=== PATIENT | female | born 1990 | race Caucasian/White ===

== ENCOUNTER 2020-12-22 14:46 | Outpatient (CLI) | payer MEDICAID ==
[~2020-12-22] VITALS: Ht 160 cm; Wt 144.5 kg
[2020-12-22 15:24] LABS: MICROSCOPIC INDICATED
[2020-12-22 15:31] LABS: AMPHETAMINE SCREEN, URINE Negative (Negative); BARBITURATE SCREEN, URINE Negative (Negative); BENZODIAZEPINE SCREEN, URINE Negative (Negative); CANNABINOID SCREEN, URINE Negative (Negative); COCAINE SCREEN, URINE Negative (Negative); METHADONE SCREEN, URINE Negative (Negative); OPIATE SCREEN, URINE Negative (Negative)
== END 2020-12-22 17:00 | disposition home or self-care (01) ==
LOC: LDOP 14:46
PROVIDERS: ATTEND Obstetrics & Gynecology
DX: Z34.90 Encounter for supervision of normal pregnancy, unspecified, unspecified trimester (principal)
CPT/HCPCS: 59025; 80307; 81001; 82570; 84156; 87086

== ENCOUNTER 2020-12-26 19:45 | Outpatient (CLI) | payer MEDICAID ==
[~2020-12-26] VITALS: Ht 160 cm; Wt 140.0 kg
[2020-12-26 21:08] LABS: MICROSCOPIC INDICATED
[2020-12-26 21:09] LABS: AMPHETAMINE SCREEN, URINE Negative (Negative); BARBITURATE SCREEN, URINE Negative (Negative); BENZODIAZEPINE SCREEN, URINE Negative (Negative); CANNABINOID SCREEN, URINE Negative (Negative); COCAINE SCREEN, URINE Negative (Negative); METHADONE SCREEN, URINE Negative (Negative); OPIATE SCREEN, URINE Negative (Negative)
== END 2020-12-26 21:40 | disposition home or self-care (01) ==
LOC: LDOP 19:45
PROVIDERS: ATTEND Obstetrics & Gynecology Female Pelvic Medicine and Reconstructive Surgery
DX: O26.893 Other specified pregnancy related conditions, third trimester (principal); R10.9 Unspecified abdominal pain; Z3A.35 35 weeks gestation of pregnancy
CPT/HCPCS: 59025; 80307; 81001; 87086

== ENCOUNTER 2021-01-14 19:25 | Outpatient (CLI) | payer MEDICAID ==
[2021-01-14 19:40] VITALS: BP 129/64
[2021-01-14 20:14] LABS: MICROSCOPIC INDICATED
[2021-01-14 20:17] LABS: AMPHETAMINE SCREEN, URINE Negative (Negative); BARBITURATE SCREEN, URINE Negative (Negative); BENZODIAZEPINE SCREEN, URINE Negative (Negative); CANNABINOID SCREEN, URINE Negative (Negative); COCAINE SCREEN, URINE Negative (Negative); METHADONE SCREEN, URINE Negative (Negative); OPIATE SCREEN, URINE Negative (Negative)
[2021-01-24] MEDS ORDERED: OXYC1TAB14 PO (12:25)
== END 2021-01-14 21:04 | disposition home or self-care (01) ==
LOC: LDOP 19:25
PROVIDERS: ATTEND Obstetrics & Gynecology
DX: O26.893 Other specified pregnancy related conditions, third trimester (principal); Z3A.38 38 weeks gestation of pregnancy
CPT/HCPCS: 59025; 80307; 81001; 87086

== ENCOUNTER 2021-01-21 05:13 | Inpatient (IN) | payer MEDICAID ==
[~2021-01-21] VITALS: Ht 160 cm; Wt 145.0 kg
[2021-01-21] MEDS ORDERED: ONDANSETRON 2MG/ML, 2ML IVPush ONE (05:30)
[2021-01-21] MEDS ORDERED: SODIUM CITRATE/CITRIC ACID 30 ML UDC PO ONE ×2 (05:30→15:00)
[2021-01-21] MEDS ORDERED: LACTATED RINGERS 1,000 ML IVBOLUS ONE (05:30)
[2021-01-21] MEDS ORDERED: CALCIUM CARBONATE 500 MG TAB.CHEW PO PRN (05:30)
[2021-01-21] MEDS ORDERED: METOCLOPRAMIDE 5 MG/ML, 2ML IV ONE (05:30)
[2021-01-21] MEDS ORDERED: CEFAZOLIN PMX 1GM/50ML 50 ML IVPB ONE (05:30)
[2021-01-21] MEDS ORDERED: SODIUM CITRATE/CITRIC ACID 15 ML UDC ONE ×2 (05:57→09:12)
[2021-01-21] MEDS ORDERED: OXYTOCIN 30U/ 0.9% NaCL 500ML 0 ML ONE (05:57)
[2021-01-21] MEDS ORDERED: METOCLOPRAMIDE 5 MG/ML, 2ML ONE ×2 (05:57→10:25)
[2021-01-21] MEDS ORDERED: PLEASE ENTER HEIGHT AND WEIGHT MC SCH (06:00)
[2021-01-21 06:02] LABS: BASOPHILS % (AUTO) 0 % (0-1); EOSINOPHILS % (AUTO) 2 % (1-7); LYMPHOCYTES % (AUTO) 20 % (22-44); MEAN CORPUSCULAR HEMOGLOBIN 26.3 pg (27.0-34.8); MEAN CORPUSCULAR HGB CONC 33.2 g/dL (32.4-35.8); MEAN PLATELET VOLUME 9.4 fL (7.4-10.4); MONOCYTES % (AUTO) 5 % (2-9); NEUTROPHILS % (AUTO) 73 % (42-75); PLATELET COUNT 220 x10^3/uL (130-400); RED BLOOD COUNT 3.82 x10^6/uL (3.82-5.3); RED CELL DISTRIBUTION WIDTH 17.3 % (9.6-15.2)
[2021-01-21 06:26] LABS: AMPHETAMINE SCREEN, URINE Negative (Negative); BARBITURATE SCREEN, URINE Negative (Negative); BENZODIAZEPINE SCREEN, URINE Negative (Negative); CANNABINOID SCREEN, URINE Negative (Negative); COCAINE SCREEN, URINE Negative (Negative); METHADONE SCREEN, URINE Negative (Negative); OPIATE SCREEN, URINE Negative (Negative)
[2021-01-21 06:32] VITALS: BP 127/80
[2021-01-21 07:51] LABS: ALANINE AMINOTRANSFERASE 14 U/L (12-78); ALBUMIN 2.4 g/dL (3.4-5.0); ANION GAP 8 mmol/L (5-15); CALCIUM 9.3 mg/dL (8.5-10.1); CHLORIDE 107 mmol/L (98-107); CREATININE 0.44 mg/dL (0.55-1.02)
[2021-01-21 07:54] LABS: ALKALINE PHOSPHATASE 117 U/L (45-117); BILIRUBIN,TOTAL 0.3 mg/dL (0.2-1.0); TOTAL PROTEIN 6.5 g/dL (6.4-8.2)
[2021-01-21 08:29] LABS: CREATININE,URINE RANDOM 84.9 mg/dL
[2021-01-21] MEDS ORDERED: OXYTOCIN 30U/ 0.9% NaCL 500ML 500 ML ONE (09:12)
[2021-01-21] MEDS ORDERED: HYDROcodone/APAP 7.5-325MG/15ML UDC PO PRN (09:30)
[2021-01-21] MEDS ORDERED: ONDANSETRON 2MG/ML, 2ML IVPush PRN (09:30)
[2021-01-21] MEDS ORDERED: OXYcodone 5 MG/5 ML ORAL.SOL UDC PO PRN (09:30)
[2021-01-21] MEDS ORDERED: HYDROmorphone 2 MG/ML, 1ML IVPush PRN (09:30)
[2021-01-21] MEDS ORDERED: hydrALAzine 20 MG/ML, 1ML IV PRN (09:30)
[2021-01-21] MEDS ORDERED: ALBUTEROL SULFATE 2.5 MG/3 ML NPPB PRN (09:30)
[2021-01-21] MEDS ORDERED: FENTANYL PF 100 MCG/2ML IV PRN (09:30)
[2021-01-21] MEDS ORDERED: PROMETHAZINE 25 MG/ML, 1ML IV PRN (09:30)
[2021-01-21] MEDS ORDERED: MEPERIDINE/PF 25MG/0.5ML IVPush PRN (09:30)
[2021-01-21] MEDS ORDERED: LABETALOL 5MG/ML, 20ML IV PRN (09:30)
[2021-01-21] MEDS ORDERED: EPHEDRINE 50 MG/ML, 1ML IVPush PRN (09:30)
[2021-01-21] MEDS ORDERED: MIDAZOLAM 1 MG/ML, 2ML IV PRN (09:30)
[2021-01-21] MEDS ORDERED: CEFAZOLIN 1,000 MG ONE (09:47)
[2021-01-21] MEDS ORDERED: KETOROLAC 30 MG/1 ML ONE (09:47)
[2021-01-21] MEDS ORDERED: FENTANYL PF 100 MCG/2ML ONE (09:47)
[2021-01-21] MEDS ORDERED: EPHEDRINE 50 MG/ML, 1ML ONE (09:47)
[2021-01-21] MEDS ORDERED: ONDANSETRON 2MG/ML, 2ML ONE (09:47)
[2021-01-21] MEDS ORDERED: DEXAMETHASONE 4 MG/ML, 1ML ONE (09:47)
[2021-01-21] MEDS ORDERED: OXYTOCIN 10 UNITS/ML, 1ML ONE (09:47)
[2021-01-21] MEDS ORDERED: PHENYLEPHRINE 10 MG/ML ONE (09:47)
[2021-01-21] MEDS ORDERED: ALBUTEROL HFA 90 MCG/SPRAY INH PRN ×2 (10:00→18:00)
[2021-01-21] MEDS: LACTATED RINGERS 1,000 ML IV SCH ×4 (10:20→21:00)
[2021-01-21] MEDS ORDERED: GLYCERIN ADULT SUPP PR PRN (11:00)
[2021-01-21] MEDS ORDERED: MORPHINE SULFATE 4 MG/ML, 1ML IVPush PRN (11:00)
[2021-01-21] MEDS ORDERED: ONDANSETRON 2MG/ML, 2ML IV PRN (11:00)
[2021-01-21] MEDS ORDERED: MISOPROSTOL 200 MCG TABLET PR PRN (11:00)
[2021-01-21] MEDS ORDERED: OXYcodone/APAP 5/325MG TABLET PO PRN ×2 (11:00)
[2021-01-21] MEDS ORDERED: CARBOPROST TROMETHAMINE 250 MCG/ML, 1ML IM PRN (11:00)
[2021-01-21] MEDS ORDERED: BISACODYL 10 MG SUPP PR PRN (11:00)
[2021-01-21] MEDS: KETOROLAC 30 MG/1 ML IV SCH ×3 (11:30→23:25)
[2021-01-21] MEDS ORDERED: HYDROmorphone 2 MG/ML, 1ML ONE (11:32)
[2021-01-21] MEDS: OXYTOCIN 30U/ 0.9% NaCL 500ML 500 ML IV SCH ×2 (14:50→21:00)
[2021-01-21] MEDS ORDERED: METOCLOPRAMIDE 5 MG/ML, 2ML IVPush ONE (15:00)
[2021-01-21 15:11] VITALS: BP 117/79
[2021-01-21 19:38] LABS: BASOPHILS % (AUTO) 0 % (0-1); EOSINOPHILS % (AUTO) 0 % (1-7); LYMPHOCYTES % (AUTO) 8 % (22-44); MEAN CORPUSCULAR HEMOGLOBIN 25.7 pg (27.0-34.8); MEAN CORPUSCULAR HGB CONC 32.7 g/dL (32.4-35.8); MEAN PLATELET VOLUME 9.1 fL (7.4-10.4); MONOCYTES % (AUTO) 4 % (2-9); NEUTROPHILS % (AUTO) 87 % (42-75); PLATELET COUNT 222 x10^3/uL (130-400); RED BLOOD COUNT 3.42 x10^6/uL (3.82-5.3); RED CELL DISTRIBUTION WIDTH 17.8 % (9.6-15.2)
[2021-01-21 19:45] VITALS: BP 120/78
[2021-01-21 23:33] VITALS: BP 134/77
[2021-01-22] MEDS: LACTATED RINGERS 1,000 ML IV SCH ×5 (03:00→19:00)
[2021-01-22 04:56] VITALS: BP 127/80
[2021-01-22] MEDS: KETOROLAC 30 MG/1 ML IV SCH ×4 (05:14→22:56)
[2021-01-22 07:00] VITALS: BP 128/78
[2021-01-22] MEDS: OXYTOCIN 30U/ 0.9% NaCL 500ML 500 ML IV SCH ×2 (07:00→17:00)
[2021-01-22] MEDS: SIMETHICONE 80 MG CHEW TAB PO PRN ×2 (07:35→22:56)
[2021-01-22] MEDS: DOCUSATE 100 MG CAPSULE PO PRN ×2 (07:35→19:08)
[2021-01-22] MEDS: PRENATAL VIT/IRON/FA 1 EACH TABLET PO SCH (07:35)
[2021-01-22] MEDS: NITROFURANTOIN (MACROBID) 100 MG CAPSULE PO SCH ×2 (07:37→20:42)
[2021-01-22 19:10] VITALS: BP 124/76
[2021-01-23] MEDS: OXYTOCIN 30U/ 0.9% NaCL 500ML 500 ML IV SCH ×3 (02:44→03:05)
[2021-01-23] MEDS: LACTATED RINGERS 1,000 ML IV SCH ×5 (02:44→03:05)
[2021-01-23] MEDS: KETOROLAC 30 MG/1 ML IV SCH (04:47)
[2021-01-23 07:45] VITALS: BP 138/82
[2021-01-23] MEDS: DOCUSATE 100 MG CAPSULE PO PRN (08:50)
[2021-01-23] MEDS: SIMETHICONE 80 MG CHEW TAB PO PRN ×2 (08:50→17:34)
[2021-01-23] MEDS: NITROFURANTOIN (MACROBID) 100 MG CAPSULE PO SCH ×2 (08:50→20:55)
[2021-01-23] MEDS: PRENATAL VIT/IRON/FA 1 EACH TABLET PO SCH (08:50)
[2021-01-23] MEDS ORDERED: KETOROLAC 30 MG/1 ML ONE (10:49)
[2021-01-23] MEDS: IBUPROFEN 800 MG TABLET PO PRN (17:34)
[2021-01-23 20:00] VITALS: BP 128/77
[2021-01-24] MEDS: IBUPROFEN 800 MG TABLET PO PRN ×2 (01:29→10:10)
[2021-01-24 08:00] VITALS: BP 127/79
[2021-01-24] MEDS: PRENATAL VIT/IRON/FA 1 EACH TABLET PO SCH (10:10)
[2021-01-24] MEDS: DOCUSATE 100 MG CAPSULE PO PRN (10:10)
[2021-01-24] MEDS: NITROFURANTOIN (MACROBID) 100 MG CAPSULE PO SCH (10:10)
[2021-01-24] MEDS ORDERED: OXYC1TAB12 PO (12:25)
[2021-01-24] MEDS ORDERED: IBUP-1223 PO (12:25)
[2021-01-24] MEDS ORDERED: DOCU-131 PO (12:25)
[2021-01-24] MEDS ORDERED: DIPH,PERTUSS(ACELL),TET VAC/PF NC IM-VACC ONE ×2 (15:02→15:30)
== END 2021-01-24 16:31 | disposition home or self-care (01) | DRG 788 ==
LOC: LDIP 05:13 → 2NW 14:33
PROVIDERS: ADMIT Obstetrics & Gynecology; ATTEND Obstetrics & Gynecology
PROC: 10D00Z1 Extraction of Products of Conception, Low, Open Approach (ICD-10-PCS; principal; 2021-01-21)
DX: O13.4 Gestational [pregnancy-induced] hypertension without significant proteinuria, complicating childbirth (principal); O34.211 Maternal care for low transverse scar from previous cesarean delivery; K66.0 Peritoneal adhesions (postprocedural) (postinfection); Z37.0 Single live birth; O99.02 Anemia complicating childbirth; O99.214 Obesity complicating childbirth; Z3A.39 39 weeks gestation of pregnancy; E66.01 Morbid (severe) obesity due to excess calories; Z20.822 Contact with and (suspected) exposure to COVID-19; O99.62 Diseases of the digestive system complicating childbirth
CPT/HCPCS: 36415; 80053; 80307; 82570; 84156; 84550; 85025; 86592; 86762; 86850; 86900; 86923; 87635; 90715; G0378; J0690; J1100; J1170; J1885; J2405; J3010; J2370; J2590; J2765; J7120

== ENCOUNTER 2021-02-15 14:17 | Emergency (ER) | payer MEDICAID ==
[~2021-02-15] VITALS: Ht 160 cm; Wt 131.5 kg
[~2021-02-15 14:17] MED LIST: DOCU-131 PO; IBUP-1223 PO; OXYC1TAB12 PO
[2021-02-15 14:23] VITALS: BP 125/65
[2021-02-15 15:19] LABS: BASOPHILS % (AUTO) 1 % (0-1); EOSINOPHILS % (AUTO) 3 % (1-7); LYMPHOCYTES % (AUTO) 35 % (22-44); MEAN CORPUSCULAR HEMOGLOBIN 26.1 pg (27.0-34.8); MEAN CORPUSCULAR HGB CONC 33.2 g/dL (32.4-35.8); MEAN PLATELET VOLUME 8.8 fL (7.4-10.4); MONOCYTES % (AUTO) 6 % (2-9); NEUTROPHILS % (AUTO) 55 % (42-75); PLATELET COUNT 326 x10^3/uL (130-400); RED BLOOD COUNT 4.38 x10^6/uL (3.82-5.3); RED CELL DISTRIBUTION WIDTH 17.5 % (9.6-15.2)
--- NOTE | 2021-02-15 17:18 | NUR ---
patient to room from lobby
--- NOTE | 2021-02-15 17:23 | NUR ---
FIRST CONTACT: HAD ON 01/21/21, I HAVE A PIECE OF PLASTIC OR METAL POKING OUT"PT WITH STEADY GAIT TO ROOM. POSTIONED TO COMFORT IN BED. VSS. ALVARENGA.
--- NOTE | 2021-02-15 18:18 | NUR ---
DR. LUCIO AT BEDSIDE REMOVING SUTURE.
--- NOTE | 2021-02-15 18:37 | NUR ---
Patient given discharge instructions and they have confirmed that they understand the instructions. Patient ambulatory with steady gait. NAD, all questions answered appropriately, denies additional needs at this time. No personal belongings left in room after discharge.
== END 2021-02-15 18:41 | disposition home or self-care (01) ==
LOC: ED 18:30
DX: L76.82 Other postprocedural complications of skin and subcutaneous tissue (principal)
CPT/HCPCS: 36415; 85025; 99283